=== PATIENT | female | born 1935 | race Caucasian/White ===

== ENCOUNTER 2018-02-12 14:09 | Outpatient (CLI) | payer MEDICARE | END 2018-02-12 14:10 | disposition home or self-care (01) | LOC: BICMAMMO 14:09 | PROVIDERS: ATTEND Obstetrics & Gynecology | DX: Z12.31 Encounter for screening mammogram for malignant neoplasm of breast (principal); Z85.038 Personal history of other malignant neoplasm of large intestine | CPT/HCPCS: 77063; 77067 ==

== ENCOUNTER 2018-02-14 08:25 | Outpatient (CLI) | payer MEDICARE ==
--- NOTE | 2018-02-14 15:12 | PET ---
PET CT: HISTORY: 82-year-old female with colon cancer. Status post robotic hemicolectomy in August 2016. Now has ris ing CEA and abnormal CT scan. TECHNIQUE: PET scanning with CT attenuation correction was performed from the base of the brain through the prox imal thighs following the intravenous administration of 11.8 mCi [id number] in the right wrist. Imaging was performed after an uptake interval of 52 minutes. COMPARISON: None. CORRELATION: CT abdomen and pelvis dated 02/06/18 from [facility]. FINDINGS: There is hypermetabolic activity in the anterolateral right lower quadrant mass noted on the CT scan with a SUV of 23.6. No hypermetabolic pulmonary nodules, liver, adrenal, or skeletal lesions are seen . No sherice hypermetabolism is noted in the neck, mediastinum, hilar regions, axilla, or retroperitone um. There is increased FDG localization in the oral cavity including the anterior and right tongue with a SUV of 12.5. The CT scan used for attenuation correction demonstrates no evidence of pleural effusions or ascites. A moderate sized hiatal hernia and sigmoid diverticulosis is present. IMPRESSION: 1. Hypermetabolic right lower quadrant mass suspicious for malignancy/metastatic disease. 2. Uptake in the oral cavity should be evaluated with direct visualization and/or CT scan. POS: WILLA
== END 2018-02-14 08:26 | disposition home or self-care (01) ==
LOC: PET 08:25
PROVIDERS: ATTEND Internal Medicine Hematology & Oncology
DX: C18.9 Malignant neoplasm of colon, unspecified (principal); R19.09 Other intra-abdominal and pelvic swelling, mass and lump
CPT/HCPCS: 78815; A9552